=== PATIENT | female | born 1985 | race Asian ===

== ENCOUNTER 2019-07-02 07:40 | Emergency (ER) | payer OTHER ==
[~2019-07-02] VITALS: Ht 154.9 cm; Wt 52.2 kg
[2019-07-02 07:55] VITALS: BP 120/65
--- NOTE | 2019-07-02 07:55 | NUR ---
ED Nurse Note: Patient walked into ED from home c/o Left side abdominal pain 5/10 radiates to medial chest since May,. No SOB. Denies n/v/d. VSS. Afebrile. ERMD at bedside.
--- NOTE | 2019-07-02 08:22 | Emergency Room Report ---
History of Present Illness General Chief Complaint: Chest Pain Source: Patient Present Illness HPI 34-year-old female presents with left epigastric abdominal pain. Patient reported she had a similar symptom 1 month ago likely due to gastritis versus GERD treated at a urgent care center. Patient was prescribed antacids but did not take it. Patient believes her symptoms would improve with diet change. Patient has decreased her acid intake, does not cook with lemon juice, spicy foods, drink tea or coffee at this time. Patient reports however over the last 2 days that she is having worsening left upper quadrant abdominal pain. She has not taken any medications for symptoms. Patient reports that her pain today went up into her chest so she became concerned. Patient has no cardiac history, no past medical history. Last menstrual period June 12, no vaginal bleeding, no discharge. G0 Allergies: Coded Allergies: No Known Allergies (Unverified , 07/02/19) Patient History Last Menstrual Period: Jun 12, 2019 Now: No : 0 Para: 0 Nursing Documentation-PM Past Medical History: No Stated History Review of Systems Constitutional: Denies: chills, fever Respiratory: Denies: cough, shortness of breath Cardiovascular: Reports: chest pain; Denies: palpitations Gastrointestinal: Reports: abdominal pain, nausea; Denies: diarrhea, vomiting Genitourinary: Denies: hematuria, pain Musculoskeletal: Denies: joint swelling Skin: Denies: rash, lesions Neurological: Denies: headache, dizziness Physical Exam Vital Signs Date Time Temp Pulse Resp B/P (MAP) Pulse Ox O2 Delivery O2 Flow Rate FiO2 07/02/19 07:47 97.3 63 18 120/65 (83) 100 Room Air Sp02 EP Interpretation: reviewed General Appearance: well appearing, no apparent distress, non-toxic Head: normocephalic, atraumatic Eyes: bilateral eye normal inspection ENT: hearing grossly normal, EOM grossly intact, moist mucus membranes Neck: supple Respiratory: lungs clear, normal breath sounds, no respiratory distress, speaking full sentences Cardiovascular #1: regular rate, rhythm, normal capillary refill Cardiovascular #2: 2+ radial (R), 2+ radial (L) Gastrointestinal: soft, no mass, no organomegaly, no peritonitis, non-distended , no guarding, no hernia, tenderness - Left upper quadrant Rectal: deferred Musculoskeletal: moves extm spontaneously, no lower extremity edema Neurologic: grossly normal Psychiatric: mood/affect normal Skin: warm/dry, normal turgor Medical Decision Making Diagnostic Impression: Primary Impression: Gastritis Additional Impression: GERD (gastroesophageal reflux disease) ER Course 34-year-old female presenting with left upper quadrant abdominal pain going into her chest reported to have history of gastritis, GERD. Tenderness in her left upper quadrant. Patient likely displaying symptoms of gastritis at this time. We will perform lab testing, give Pepcid, Zofran, GI cocktail and reassess. Laboratory Tests Test 07/02/19 08:26 White Blood Count 4.9 K/UL (4.8-10.8) Red Blood Count 4.01 M/UL (4.20-5.40) L Hemoglobin 12.6 G/DL (12.0-16.0) Hematocrit 37.9 % (37.0-47.0) Mean Corpuscular Volume 95 FL (80-99) Mean Corpuscular Hemoglobin 31.5 PG (27.0-31.0) H Mean Corpuscular Hemoglobin Concent 33.3 G/DL (32.0-36.0) Red Cell Distribution Width 10.7 % (11.6-14.8) L Platelet Count 202 K/UL (150-450) Mean Platelet Volume 7.5 FL (6.5-10.1) Neutrophils (%) (Auto) % (45.0-75.0) Lymphocytes (%) (Auto) % (20.0-45.0) Monocytes (%) (Auto) % (1.0-10.0) Eosinophils (%) (Auto) % (0.0-3.0) Basophils (%) (Auto) % (0.0-2.0) Neutrophils % (Manual) Pending Lymphocytes % (Manual) Pending Platelet Estimate Pending Platelet Morphology Pending Urine Color Pale yellow Urine Appearance Clear Urine pH 5 (4.5-8.0) Urine Specific [place] 1.010 (1.005-1.035) Urine Protein Negative (NEGATIVE) Urine Glucose (UA) Negative (NEGATIVE) Urine Ketones Negative (NEGATIVE) Urine Blood 2+ (NEGATIVE) H Urine Nitrite Negative (NEGATIVE) Urine Bilirubin Negative (NEGATIVE) Urine Urobilinogen Normal MG/DL (0.0-1.0) Urine Leukocyte Esterase Negative (NEGATIVE) Urine RBC 2-4 /HPF (0 - 2) H Urine WBC 0 /HPF (0 - 2) Urine Squamous Epithelial Cells Few /LPF (NONE/OCC) Urine Bacteria Occasional /HPF (NONE) Urine HCG, Qualitative Negative (NEGATIVE) Sodium Level 140 MMOL/L (136-145) Potassium Level 3.6 MMOL/L (3.5-5.1) Chloride Level 105 MMOL/L (98-107) Carbon Dioxide Level 26 MMOL/L (21-32) Anion Gap 9 mmol/L (5-15) Blood Urea Nitrogen 12 mg/dL (7-18) Creatinine 0.9 MG/DL (0.55-1.30) Estimate Glomerular Filtration Rate > 60 mL/min (>60) Glucose Level 87 MG/DL (74-106) Calcium Level 8.8 MG/DL (8.5-10.1) Total Bilirubin 0.6 MG/DL (0.2-1.0) Aspartate Amino Transferase (AST) 16 U/L (15-37) Alanine Aminotransferase (ALT) 29 U/L (12-78) Alkaline Phosphatase 50 U/L (46-116) Troponin I 0.000 ng/mL (0.000-0.056) Total Protein 7.4 G/DL (6.4-8.2) Albumin 4.2 G/DL (3.4-5.0) Globulin 3.2 g/dL Albumin/Globulin Ratio 1.3 (1.0-2.7) Lipase 182 U/L (73-393) EKG Diagnostic Results EKG Time: 07:57 EP Interpretation: Rate of 50 Rate: bradycardiac Rhythm: NSR ST Segments: no acute changes Last Vital Signs Date Time Temp Pulse Resp B/P (MAP) Pulse Ox O2 Delivery O2 Flow Rate FiO2 07/02/19 07:47 97.3 63 18 120/65 (83) 100 Room Air Reevaluation Impression Patient symptoms improved. Patient recommended to follow-up with primary care doctor and see a GI doctor as soon as possible. Patient understands instructions. Patient recommend to return to emergency room if she has any worsening symptoms. Disposition: HOME, SELF-CARE Condition: Stable Scripts Omeprazole (OMEPRAZOLE) 20 Mg Tablet. 20 MG ORAL BID for 15 Days, #30 TAB Prov: Topher Key M.D. 07/02/19 Referrals: [facility] Patient Instructions: Food Choices for Gastroesophageal Reflux Disease, Adult, Gastrin Test Topher Key M.D. Jul 02, 2019 08:21
[2019-07-02] MEDS ORDERED: Mylanta II UD 30ml ORAL ONE (08:30)
[2019-07-02] MEDS ORDERED: Lidocaine 2% Visc 15ml soln ORAL ONE (08:30)
--- NOTE | 2019-07-02 08:30 | NUR ---
ED Nurse Note: Iv lne established. Blood and urine collected and sent to lab.
[2019-07-02 08:42] LABS: APPEARANCE,URINE CLEAR; BILIRUBIN, URINE NEGATIVE (NEGATIVE); COLOR,URINE PALE YELLOW; GLUCOSE, URINE (UA) NEGATIVE (NEGATIVE); HEMATOCRIT 37.9 % (37.0-47.0); HEMOGLOBIN 12.6 G/DL (12.0-16.0); KETONES,URINE NEGATIVE (NEGATIVE); LEUKOCYTE ESTERASE ,URINE NEGATIVE (NEGATIVE); MEAN CORPUSCULAR VOLUME 95 FL (80-99); NITRITE,URINE NEGATIVE (NEGATIVE); PH,URINE 5 (4.5-8.0); PLATELET COUNT 202 K/UL (150-450); PROTEIN,URINE NEGATIVE (NEGATIVE); RED BLOOD COUNT 4.01 M/UL (4.20-5.40); RED CELL DISTRIBUTION WIDTH 10.7 % (11.6-14.8); UROBILINOGEN,URINE NORMAL MG/DL (0.0-1.0); WHITE BLOOD COUNT 4.9 K/UL (4.8-10.8)
[2019-07-02 08:53] LABS: ANION GAP 9 mmol/L (5-15); BLOOD UREA NITROGEN 12 mg/dL (7-18); CALCIUM 8.8 MG/DL (8.5-10.1); CARBON DIOXIDE 26 MMOL/L (21-32); CHLORIDE 105 MMOL/L (98-107); CREATININE 0.9 MG/DL (0.55-1.30); POTASSIUM 3.6 MMOL/L (3.5-5.1); SODIUM 140 MMOL/L (136-145)
[2019-07-02 08:58] LABS: ALANINE AMINOTRANSFERASE 29 U/L (12-78); ALBUMIN 4.2 G/DL (3.4-5.0); ALBUMIN/GLOBULIN RATIO 1.3 (1.0-2.7); ALKALINE PHOSPHATASE 50 U/L (46-116); ASPARTATE AMINO TRANSFERASE 16 U/L (15-37); BILIRUBIN,TOTAL 0.6 MG/DL (0.2-1.0)
[2019-07-02] MEDS ORDERED: OMEPRAZOLE20 M3 ORAL (09:04)
[2019-07-02 09:20] VITALS: BP 110/70
--- NOTE | 2019-07-02 09:20 | NUR ---
ED Nurse Note: Pt cleared by ERMD for discharge. DC instructions/prescription was given and explained to pt and verbalized understanding of teachings. All medical deviecs such as ID band and IV line removed. Pt is AAO x4, ambulatory and left with all personal belongings.
== END 2019-07-02 09:20 | disposition home or self-care (01) ==
LOC: EMR 08:33
DX: K29.70 Gastritis, unspecified, without bleeding (principal); K21.9 Gastro-esophageal reflux disease without esophagitis; R00.1 Bradycardia, unspecified
CPT/HCPCS: 36415; 80053; 81003; 81025; 83690; 84484; 85007; 85025; 93005; 96361; 96374; 96375; J2405; J7030; S0028; Z7502; 99284

== ENCOUNTER 2019-07-23 10:59 | Emergency (ER) | payer OTHER ==
[~2019-07-23] VITALS: Ht 154.9 cm; Wt 50.5 kg
[~2019-07-23 10:59] MED LIST: OMEPRAZOLE20 M3 ORAL
--- NOTE | 2019-07-23 11:15 | NUR ---
ED Nurse Note: Pt ambulated to ED d/t LT side lower back pain that radiates to LT leg, pt verbalized 6/10 pain scale upon triage. Pt denies injury/trauma. VSS, on RA. Placed on bed.
[2019-07-23 11:16] VITALS: BP 109/69
--- NOTE | 2019-07-23 11:38 | NUR ---
ED Nurse Note: Dr. Vega on bedside.
--- NOTE | 2019-07-23 11:45 | Emergency Room Report ---
History of Present Illness General Chief Complaint: Pain Source: Patient Present Illness HPI Patient is a 34-year-old female presents after increased left-sided flank pain and generalized body aches. She reports having increased hoarseness to her voice. Associated generalized weakness. Had recent ER visit with similar symptoms. Denies any vomiting. Some diarrhea. Denies any bloody stools. No prior medical history. Denies being . Allergies: Coded Allergies: No Known Allergies (Unverified , 07/02/19) Patient History Past Medical History: see triage record Last Menstrual Period: 06/2019 Now: No Reviewed Nursing Documentation: PMH: Agreed; PSxH: Agreed Nursing Documentation-PMH Hx Gastrointestinal Problems: Yes - GERD Review of Systems All Other Systems: negative except mentioned in HPI Physical Exam Vital Signs Date Time Temp Pulse Resp B/P (MAP) Pulse Ox O2 Delivery O2 Flow Rate FiO2 07/23/19 11:05 98.2 66 18 109/69 (82) 100 Sp02 EP Interpretation: reviewed, normal General Appearance: normal inspection, well appearing, no apparent distress, alert, GCS 15 Head: atraumatic ENT: normal ENT inspection, hearing grossly normal, normal voice Neck: normal inspection, full range of motion, supple, no bony tend Respiratory: normal inspection, lungs clear, normal breath sounds, no respiratory distress, no retraction, no wheezing Cardiovascular #1: regular rate, rhythm, no edema Gastrointestinal: normal inspection, normal bowel sounds, non tender, soft, no guarding, no hernia Genitourinary: no CVA tenderness Musculoskeletal: normal inspection, back normal, normal range of motion Neurologic: alert, responsive, speech normal, normal inspection Psychiatric: normal inspection, judgement/insight normal, mood/affect normal Medical Decision Making Diagnostic Impression: Primary Impression: Low back pain Additional Impression: Sciatica ER Course Patient presented for generalized weakness and body ache. Differential diagnosis include was not limited to ovarian cyst rupture, urinary tract infection, viral infection, among others. Because of complexity of patient's case laboratory tests and imaging studies were ordered. Laboratory testing was unremarkable. Abdominal ultrasound showed no evidence of acute renal obstruction with some mild hydronephrosis bilaterally. This consistent with patient's recent IV fluids. Patient does show some evidence of sciatic type pain. Patient was advised to follow-up primary care physician. The patient is advised to follow up with primary care doctor in 1-2 days. Patient is advised to return if any worsening condition or if any changes in status that are concerning. This report is dictated with [employer] transmitter chief software which may occasionally lead to discrepancies related to use of this software. Labs Test 07/23/19 11:46 White Blood Count 6.8 K/UL (4.8-10.8) Red Blood Count 4.33 M/UL (4.20-5.40) Hemoglobin 13.8 G/DL (12.0-16.0) Hematocrit 40.4 % (37.0-47.0) Mean Corpuscular Volume 93 FL (80-99) Mean Corpuscular Hemoglobin 31.9 PG (27.0-31.0) Mean Corpuscular Hemoglobin Concent 34.1 G/DL (32.0-36.0) Red Cell Distribution Width 11.0 % (11.6-14.8) Platelet Count 249 K/UL (150-450) Mean Platelet Volume 7.6 FL (6.5-10.1) Neutrophils (%) (Auto) 66.6 % (45.0-75.0) Lymphocytes (%) (Auto) 24.5 % (20.0-45.0) Monocytes (%) (Auto) 6.5 % (1.0-10.0) Eosinophils (%) (Auto) 1.3 % (0.0-3.0) Basophils (%) (Auto) 1.0 % (0.0-2.0) Prothrombin Time 10.6 SEC (9.30-11.50) Prothromb Time International Ratio 1.0 (0.9-1.1) Activated Partial Thromboplast Time 32 SEC (23-33) Urine Color Pale yellow Urine Appearance Clear Urine pH 7 (4.5-8.0) Urine Specific [place] 1.005 (1.005-1.035) Urine Protein Negative (NEGATIVE) Urine Glucose (UA) Negative (NEGATIVE) Urine Ketones Negative (NEGATIVE) Urine Blood Negative (NEGATIVE) Urine Nitrite Negative (NEGATIVE) Urine Bilirubin Negative (NEGATIVE) Urine Urobilinogen Normal MG/DL (0.0-1.0) Urine Leukocyte Esterase Negative (NEGATIVE) Urine HCG, Qualitative Negative (NEGATIVE) Sodium Level 140 MMOL/L (136-145) Potassium Level 4.3 MMOL/L (3.5-5.1) Chloride Level 105 MMOL/L (98-107) Carbon Dioxide Level 28 MMOL/L (21-32) Anion Gap 7 mmol/L (5-15) Blood Urea Nitrogen 17 mg/dL (7-18) Creatinine 0.8 MG/DL (0.55-1.30) Estimat Glomerular Filtration Rate > 60 mL/min (>60) Glucose Level 64 MG/DL (74-106) Calcium Level 9.3 MG/DL (8.5-10.1) Total Bilirubin 0.5 MG/DL (0.2-1.0) Aspartate Amino Transf (AST/SGOT) 20 U/L (15-37) Alanine Aminotransferase (ALT/SGPT) 36 U/L (12-78) Alkaline Phosphatase 62 U/L (46-116) Troponin I 0.000 ng/mL (0.000-0.056) Total Protein 7.9 G/DL (6.4-8.2) Albumin 4.3 G/DL (3.4-5.0) Globulin 3.6 g/dL Albumin/Globulin Ratio 1.2 (1.0-2.7) Lipase 309 U/L (73-393) Thyroid Stimulating Hormone (TSH) 0.995 uiU/mL (0.358-3.740) Last Vital Signs Date Time Temp Pulse Resp B/P (MAP) Pulse Ox O2 Delivery O2 Flow Rate FiO2 07/23/19 11:16 98.2 78 18 109/69 100 Status: improved Disposition: HOME, SELF-CARE Condition: Stable Scripts Methocarbamol* (ROBAXIN-500*) 500 Mg Tablet 500 MG ORAL TID, #10 TAB 0 Refills Prov: Tyrel Vega MD 07/23/19 Tyrel Vega MD Jul 23, 2019 11:45
--- NOTE | 2019-07-23 11:48 | NUR ---
ED Nurse Note: Offered sandwich and juice to pt.
[2019-07-23 12:15] LABS: APPEARANCE,URINE CLEAR; BILIRUBIN, URINE NEGATIVE (NEGATIVE); COLOR,URINE PALE YELLOW; GLUCOSE, URINE (UA) NEGATIVE (NEGATIVE); KETONES,URINE NEGATIVE (NEGATIVE); LEUKOCYTE ESTERASE ,URINE NEGATIVE (NEGATIVE); NITRITE,URINE NEGATIVE (NEGATIVE); PH,URINE 7 (4.5-8.0); PROTEIN,URINE NEGATIVE (NEGATIVE); UROBILINOGEN,URINE NORMAL MG/DL (0.0-1.0)
[2019-07-23 12:17] LABS: EOSINOPHILS % (AUTO) 1.3 % (0.0-3.0); HEMATOCRIT 40.4 % (37.0-47.0); HEMOGLOBIN 13.8 G/DL (12.0-16.0); LYMPHOCYTES % (AUTO) 24.5 % (20.0-45.0); MEAN CORPUSCULAR VOLUME 93 FL (80-99); MONOCYTES % (AUTO) 6.5 % (1.0-10.0); NEUTROPHILS % (AUTO) 66.6 % (45.0-75.0); PLATELET COUNT 249 K/UL (150-450); RED BLOOD COUNT 4.33 M/UL (4.20-5.40); WHITE BLOOD COUNT 6.8 K/UL (4.8-10.8)
[2019-07-23 12:37] LABS: ANION GAP 7 mmol/L (5-15); BLOOD UREA NITROGEN 17 mg/dL (7-18); CALCIUM 9.3 MG/DL (8.5-10.1); CARBON DIOXIDE 28 MMOL/L (21-32); CHLORIDE 105 MMOL/L (98-107); CREATININE 0.8 MG/DL (0.55-1.30); POTASSIUM 4.3 MMOL/L (3.5-5.1); SODIUM 140 MMOL/L (136-145)
[2019-07-23 12:41] LABS: ALANINE AMINOTRANSFERASE 36 U/L (12-78); ALBUMIN 4.3 G/DL (3.4-5.0); ALBUMIN/GLOBULIN RATIO 1.2 (1.0-2.7); ALKALINE PHOSPHATASE 62 U/L (46-116); ASPARTATE AMINO TRANSFERASE 20 U/L (15-37); BILIRUBIN,TOTAL 0.5 MG/DL (0.2-1.0)
[2019-07-23] MEDS ORDERED: Ketorolac 30mg Inj IV ONE (12:45)
[2019-07-23] MEDS ORDERED: ROBAXIN-500MG ORAL (13:39)
--- NOTE | 2019-07-23 13:55 | NUR ---
ED Nurse Note: US on bedside.
--- NOTE | 2019-07-23 14:31 | NUR ---
ED Nurse Note: US done.
[2019-07-23 14:58] VITALS: BP 115/70
--- NOTE | 2019-07-23 14:58 | NUR ---
ER DISCHARGE NOTE: Pt is cleared to be discharged per ERMD, pt is AOx4, VSS, on RA. pt was given dc and prescription instructions, pt was able to verbalize understanding, pt id band and IV site removed without complications. pt is able to ambulate with steady gait. pt took all belongings.
--- NOTE | 2019-07-24 16:44 | Diagnostic Imaging Report ---
Indication: Abdominal pain Technique: Grayscale and duplex Doppler imaging of the abdomen performed. Comparison: None Findings: The liver is unremarkable. Doppler interrogation of the main portal vein shows patency with hepatopedal, monophasic flow. There is no biliary ductal dilatation identified. Gallbladder is unremarkable. There demonstrated part of the pancreas, aorta and IVC show no definite abnormalities. There is mild bilateral hydronephrosis present. There is some thickening of the wall the urinary bladder although the bladder. Small post void residual of about 7.6 cc noted. The hydronephrosis persists subsequent to emptying the bladder. IMPRESSION: Mild bilateral hydronephrosis.
== END 2019-07-23 14:58 | disposition home or self-care (01) ==
LOC: EMR 12:00
DX: M54.40 Lumbago with sciatica, unspecified side (principal); K21.9 Gastro-esophageal reflux disease without esophagitis
CPT/HCPCS: 36415; 76700; 80053; 81003; 81025; 83690; 84443; 84484; 85025; 85610; 85730; 86710; 96361; 96374; J1885; J7030; Z7502; 99284